=== PATIENT | female | born 1950 | race Caucasian/White ===

== ENCOUNTER 2017-03-30 22:35 | Observation (INO) | payer OTHER, BC ==
[~2017-03-30] VITALS: Ht 160 cm; Wt 97.2 kg
[~2017-03-30 22:35] MED LIST: ASPIRIN81 M2 PO; ATIVAN1 MG PO; ATORVASTATIN CA40 MG PO; CLOBETASOL PROP60 G1 TP; DESYREL100 MG PO; FLUOXETINE HCL40 MG PO; LIPITOR40 MG PO; LO-DOSE ASPIRIN81 M1 PO; MOTRIN IB200 MG PO; PROTONIX40 MG PO; PROZAC20 MG PO; VITAMIN D-32000 UNI2 PO; VITAMIN D2000 UNI1 PO
[2017-03-30 23:42] LABS: HEMATOCRIT 37.6 % (36.0-46.0); MCH 28.4 PG (29.0-34.0); PLATELET COUNT 211 K/uL (156-360); RBC DIS.WIDTH-SD 40.5 % (39-53); RED BLOOD COUNT 4.37 M/uL (3.80-5.20); WHITE BLOOD COUNT 4.9 K/uL (4.1-10.2)
[2017-03-31 00:05] LABS: CHLORIDE 107 mEq/L (99-109); SODIUM 143 mEq/L (136-147)
[2017-03-31 00:07] LABS: GLUCOSE 80 mg/dL (70-99)
[2017-03-31 00:08] LABS: ANION GAP 8 MEQ/L (2-14)
[2017-03-31 00:10] LABS: GFR ESTIMATE (CALCULATED) > 59 mL/min/
[2017-03-31 00:11] LABS: UREA NITROGEN (BUN) 13 mg/dL (9-23)
[2017-03-31 00:20] LABS: TROP-I INTERPRETATION NEGATIVE; TROPONIN-I < 0.01 ng/mL (0.0-0.30)
[2017-03-31] MEDS ORDERED: CALCIUM 600 WI1 EAC2 PO (00:40)
[2017-03-31] MEDS ORDERED: CYANOCOBALAM1000 MCG PO (00:41)
[2017-03-31] MEDS ORDERED: LOMOTIL TABLET1 EACH PO (00:41)
[2017-03-31] MEDS ORDERED: TIMOPTIC-0100 DROP/1 BOTH EYES (00:41)
[2017-03-31 04:33] VITALS: BP 124/82
[2017-03-31 05:48] LABS: TROP-I INTERPRETATION NEGATIVE; TROPONIN-I < 0.01 ng/mL (0.0-0.30)
[2017-03-31 07:51] LABS: ALKALINE PHOSPHATASE 57 IU/L (3-129); DIRECT BILIRUBIN 0.2 mg/dL (0.0-0.3); LIPASE 22 U/L (1.0-51.0); TOTAL BILIRUBIN 0.8 MG/DL (0.0-1.0)
[2017-03-31 07:59] LABS: HDL CHOLESTEROL 83 MG/DL (Desirable>=50); LDL CHOLESTEROL 71 mg/dL (Desirable<100); NON-HDL CHOLESTEROL 81 mg/dL (Desirable<160); TOTAL CHOLESTEROL 164 mg/dL (Desirable<200); TRIGLYCERIDES 52 MG/DL (Normal: <150)
[2017-03-31 09:16] VITALS: BP 135/80
[2017-03-31 11:18] VITALS: BP 135/69
[2017-03-31 13:12] LABS: TROP-I INTERPRETATION NEGATIVE; TROPONIN-I < 0.01 ng/mL (0.0-0.30)
== END 2017-03-31 15:44 | disposition home or self-care (01) ==
LOC: EME 22:35 → EDOF 03-31 03:17 → ENRESERV 03-31 03:19 → 5WEST 03-31 04:33
PROVIDERS: Physician Assistant Medical
DX: R10.13 Epigastric pain (principal); K21.9 Gastro-esophageal reflux disease without esophagitis; K52.9 Noninfective gastroenteritis and colitis, unspecified; K57.30 Diverticulosis of large intestine without perforation or abscess without bleeding; F41.9 Anxiety disorder, unspecified; Z85.060 Personal history of malignant carcinoid tumor of small intestine; Z87.19 Personal history of other diseases of the digestive system; Z90.49 Acquired absence of other specified parts of digestive tract; R20.0 Anesthesia of skin; R00.2 Palpitations; G89.29 Other chronic pain; R07.9 Chest pain, unspecified; I10 Essential (primary) hypertension; Z85.828 Personal history of other malignant neoplasm of skin; Z79.82 Long term (current) use of aspirin; E66.8 Other obesity; Z68.37 Body mass index [BMI] 37.0-37.9, adult; Z88.0 Allergy status to penicillin; Z88.5 Allergy status to narcotic agent
CPT/HCPCS: 71020; 74176; 80048; 80061; 80076; 83690; 84484; 85027; 93005; 99281; 99283; G0378